=== PATIENT | female | born 1990 | race Caucasian/White ===

== ENCOUNTER 2018-04-08 17:51 | Emergency (ER) | payer OTHER ==
[~2018-04-08] VITALS: Ht 162.6 cm; Wt 78.2 kg
[2018-04-08 17:58] VITALS: Ht 162.6 cm; Wt 78.2 kg
[2018-04-08] MEDS ORDERED: HYDROmorphONE 1 MG/ML SYG IV STA (18:21)
[2018-04-08] MEDS ORDERED: SOD CHLORIDE 0.9% 1,000 ML IV STA ×2 (18:21→21:25)
[2018-04-08] MEDS ORDERED: ONDANSETRON 4 MG INJ IV STA (18:21)
[2018-04-08] MEDS ORDERED: ERTAPENEM SODIUM 1 GM in SOD CHLORIDE 0.9% 100 ML IVPB ONE (18:30)
[2018-04-08] MEDS ORDERED: IOHEXOL 300MG/ML 150 ML BTL ONE (19:08)
[2018-04-08] MEDS ORDERED: SOD CHLORIDE 0.9% 100 ML ONE (19:08)
[2018-04-08] MEDS ORDERED: ACETAMINOPHEN 500 MG TAB PO STA (20:07)
--- NOTE | 2018-04-08 20:10 | ERD ---
ER Documentation Chief Complaint Chief Complaint LOWER ABD PAIN , BACK PAIN , TINGLING IN BOTH LEGS , ONSET TODAY HPI This is a 28-year-old female who developed a fever this morning. She also complains of chills and generalized malaise and has pain in the lower abdomen diffusely and also in the left flank. No hematuria no vaginal discharge no cough shortness of breath or short throat. No syncope no nausea vomiting or diarrhea ROS All systems reviewed and are negative except as per history of present illness. Medications Home Meds Active Scripts Hydrocodone/Acetaminophen (Rudolph 10-325 Tablet) 1 Each Tablet, 1 TAB PO Q6H PRN for PAIN, #7 TAB Prov:LELAYNEOS,BRYANSTOLOS A. DO 04/08/18 Nitrofurantoin Monohyd Macrocr* (Macrobid*) 100 Mg Capsr, 100 MG PO BID for 10 Days, CAP Prov:LEKKOS,APOSTOLOS A. DO 04/08/18 Ciprofloxacin Hcl* (Ciprofloxacin Hcl*) 500 Mg Tablet, 500 MG PO BID for 10 Days, TAB Prov:GENEOS,BRYANSTGERDAS A. DO 04/08/18 Allergies Allergies: Coded Allergies: Penicillins (Verified Allergy, Unknown, 04/08/18) PMhx/Soc Medical and Surgical Hx: pt denies Medical Hx History of Surgery: Yes ( X3) Anesthesia Reaction: No Hx Neurological Disorder: No Hx Respiratory Disorders: No Hx Cardiac Disorders: Yes (HLD) Hx Psychiatric Problems: No Hx Miscellaneous Medical Probl: No Hx Alcohol Use: No Hx Substance Use: No Hx Tobacco Use: Yes Smoking Status: Current every day smoker FmHx Family History: No coronary disease Physical Exam Vitals Vital Signs Date Temp Pulse Resp B/P (MAP) Pulse Ox O2 O2 Flow FiO2 Time Delivery Rate 04/08/18 98.9 130 13 109/68 98 Room Air 21:25 (82) 04/08/18 102.0 133 12 123/76 100 Room Air 20:20 (92) 04/08/18 102.0 20:15 04/08/18 103.0 140 18 129/81 100 17:58 (97) Physical Exam Const: Well-developed, well-nourished Head: Atraumatic, normocephalic Eyes: Normal Conjunctiva, PERRLA, EOMI, normal sclera, no nystagmus ENT: Normal External Ears, Nose and Mouth, moist mucus membranes. Neck: Full range of motion. No meningismus, no lymphadenopathy. Resp: Clear to auscultation bilaterally, no wheezing, rhonchi, rales Cardio: Tachycardia, no murmurs, S1 S2 present Abd: Soft, left and mid abdominal mild tenderness, non distended. Normal bowel sounds, no guarding or rebound, no pulsitile abdominal masses or bruits Skin: No petechiae or rashes, no ecchymosis , no maculopapular rash Back: Mild left flank tenderness Ext: No cyanosis, or edema, FROM x 4, normal inspection, neurova scularly intact x 4 Neur: Awake and alert, STR 5/5 x 4, sensation intact x 4, no focal findings, cerebellum intact Psych: Normal Mood and Affect Result Diagram: 04/08/18182904/08/181829 Results 24 hrs Laboratory Tests Test 04/08/18 18:30 04/08/18 18:34 White Blood Count 13.4 10^3/ul Red Blood Count 4.65 10^6/ul Hemoglobin 8.8 g/dl Hematocrit 29.6 % Mean Corpuscular Volume 63.7 fl Mean Corpuscular Hemoglobin 18.9 pg Mean Corpuscular Hemoglobin Concent 29.7 g/dl Red Cell Distribution Width 20.2 % Platelet Count 283 10^3/UL Mean Platelet Volume 9.8 fl Immature Granulocytes % 0.600 % Neutrophils % 85.0 % Lymphocytes % 6.3 % Monocytes % 7.8 % Eosinophils % 0.1 % Basophils % 0.2 % Nucleated Red Blood Cells % 0.0 /100WBC Immature Granulocytes # 0.080 10^3/ul Neutrophils # 11.4 10^3/ul Lymphocytes # 0.8 10^3/ul Monocytes # 1.0 10^3/ul Eosinophils # 0.0 10^3/ul Basophils # 0.0 10^3/ul Nucleated Red Blood Cells # 0.0 10^3/ul Urine Color YELLOW Urine Clarity SLIGHTLY CLOUDY Urine pH 6.0 Urine Specific [place] 1.025 Urine Ketones NEGATIVE mg/dL Urine Nitrite NEGATIVE mg/dL Urine Bilirubin NEGATIVE mg/dL Urine Urobilinogen 1+ mg/dL Urine Leukocyte Esterase TRACE [place]/ul Urine Microscopic RBC 25 /HPF Urine Microscopic WBC 35 /HPF Urine Squamous Epithelial Cells FEW /HPF Urine Bacteria FEW /HPF Urine Hemoglobin 1+ mg/dL Urine Glucose NEGATIVE mg/dL Urine Total Protein 2+ mg/dl Urine Test NEGATIVE Sodium Level 139 mmol/L Potassium Level 3.3 mmol/L Chloride Level 98 mmol/L Carbon Dioxide Level 24 mmol/L Anion Gap 17 Blood Urea Nitrogen 9 mg/dl Creatinine 0.73 mg/dl Est Glomerular Filtrat Rate mL/min > 60 mL/min Glucose Level 104 mg/dl Calcium Level 9.8 mg/dl Total Bilirubin 0.6 mg/dl Direct Bilirubin 0.00 mg/dl Indirect Bilirubin 0.6 mg/dl Aspartate Amino Transf (AST/SGOT) 24 IU/L Alanine Aminotransferase (ALT/SGPT) 26 IU/L Alkaline Phosphatase 70 IU/L Total Protein 9.1 g/dl Albumin 4.9 g/dl Globulin 4.20 g/dl Albumin/Globulin Ratio 1.16 Lipase 42 U/L POC Venous Lactate 2.0 mmol/L Current Medications Medications Dose Sig/Dwayne Start Time Status Last (Trade) Ordered Route PRN Stop Time Admin Dose Reason Admin Sodium 1,000 ml @ Q1H STAT 04/08/18 DC 04/08/18 Chloride 1,000 mls/hr IV 18:21 18:41 04/08/18 19:20 1 mg ONCE STAT 04/08/18 DC 04/08/18 Hydromorphone IV 18:21 18:40 HCl 04/08/18 18:24 (Dilaudid) Ondansetron 4 mg ONCE STAT 04/08/18 DC 04/08/18 HCl (Zofran IV 18:21 18:40 Inj) 04/08/18 18:24 Ertapenem 1 100 ml @ ONCE ONCE 04/08/18 DC 04/08/18 gm/ Sodium 200 mls/hr IVPB 18:30 19:09 Chloride 04/08/18 18:59 IV Flush 10 ml STK-MED 04/08/18 DC 04/08/18 (NS 10 ml) ONCE .ROUTE 19:08 19:22 04/08/18 19:09 Sodium 100 ml @ ud STK-MED 04/08/18 DC 04/08/18 Chloride ONCE .ROUTE 19:08 19:22 04/08/18 19:09 Iohexol 150 ml STK-MED 04/08/18 DC 04/08/18 (Omnipaque ONCE .ROUTE 19:08 19:22 300mg/ ml) 04/08/18 19:09 1,000 mg ONCE STAT 04/08/18 DC 04/08/18 Acetaminophen PO 20:07 20:15 (Tylenol 04/08/18 20:10 Tab) Sodium 1,000 ml @ Q1H STAT 04/08/18 DC 04/08/18 Chloride 1,000 mls/hr IV 21:25 21:30 04/08/18 22:24 Procedures/MDM Ordering MD: MAYKEL CARBONE DO Location: E/R Room/Bed: PROCEDURE: CT abdomen and pelvis with contrast. CLINICAL INDICATION: Left lower quadrant pain. Fever. TECHNIQUE: CT scan of the abdomen and pelvis without oral contrast was performed and is reconstructed at 2.5 mm contiguous axial intervals from the dome of the diaphragm to the inferior pubic rami.. The patient was scanned with intravenous contrast. Sagittal and coronal reformatted images were obtained from the axial source images. The calculated radiation dose measures 971 mGy centimeters. The CTDI measures 16 mGy. Individualized dose optimization technique was used for the performance of this exam. This included 1. Automated exposure control. 2. Adjustment of the mA and / or kV according to the patient's size. 3. Use of iterative reconstructed technique. COMPARISON: None. FINDINGS: The lung bases are clear of any infiltrate or nodule. No effusion is seen. The liver is of normal size and contour with no mass or ductal dilatation. No gallstones are visualized. No splenic, adrenal or pancreatic abnormalities present. Kidneys are of normal size and contour. There is a rounded region of reduced heterogeneous enhancement on them medial aspect of the mid to lower pole of the left kidney with stranding of the surrounding fat. This is compatible with pyelonephritis. There is no discrete abscess.. There is mild fullness of the lef t intrarenal collecting system.. Noted is a 3 mm nonobstructing stone in the lower pole of the left kidney. Ureters are of normal course and caliber with no stone. No bladder mass or stone is present. Uterus appears normal. No adnexal masses present. There is no aneurysm. No adenopathy is present. No bowel mass or obstruction is present. The appendix is normal. No pneumoperitoneum is visualized. There is trace pelvic ascites. The osseous structures are intact. IMPRESSION: Left renal pyelonephritis. Mild fullness intrarenal collecting system without evidence of obstructing calculus. 3 mm nonobstructing stone lower pole left kidney. Fatty liver. .Butch Snyder MD, Date Time Electronically viewed and signed by .Butch Snyder MD, on 04/08/2018 19:26 .A/ CC: MAYKEL CARBONE DO [id number] . Patient has a white count of 13.4 with a lactic acid of 2.0. The patient is well-appearing does not appear septic. She has left pyelonephritis and gave her fluids, Tylenol, Invanz 1 g IV. When her fever subsides and her heart rate gets under control we will discharge home with prescription for pain medication, Cipro/Macrobid At 2333 patient's heart rate is 107 We will give a little bit more fluids and discharged home Departure Diagnosis: Primary Impression: Pyelonephritis Condition: Stable MAYKEL CARBONE DO Apr 08, 2018 20:10
[2018-04-08] MEDS ORDERED: NITR-58 PO (21:57)
[2018-04-08] MEDS ORDERED: CIPR500T4 PO (21:57)
[2018-04-08] MEDS ORDERED: HYDR-3980 PO (21:57)
[2018-04-08] MEDS ORDERED: SOD CHLORIDE 0.9% 500 ML IV STA (23:34)
[2018-04-09 00:26] VITALS: BP 110/76; PULSE 103; RESP 18
== END 2018-04-09 00:27 | disposition home or self-care (01) ==
LOC: E/R 17:51
DX: N12 Tubulo-interstitial nephritis, not specified as acute or chronic (principal); F17.210 Nicotine dependence, cigarettes, uncomplicated
CPT/HCPCS: 36415; 74177; 80053; 81001; 83605; 83690; 84703; 85025; 87040; 87086; 96361; 96365; 96375; J1170; J1335; J7030; J7040; Q9967; Z7502; Z7610